=== PATIENT | female | born 1980 | race Caucasian/White ===

== ENCOUNTER → 2018-07-15 | Outpatient (CLI) | payer OTHER | END | disposition home or self-care (01) | LOC: LAB SHORT 13:58 → LAB 13:58 | DX: E11.9 Type 2 diabetes mellitus without complications (principal) | CPT/HCPCS: 83036 ==

== ENCOUNTER 2019-01-07 17:00 | Emergency (ER) | payer OTHER ==
[~2019-01-07] VITALS: Ht 165.1 cm; Wt 66.2 kg
[2019-01-07] MEDS ORDERED: BUPRENORPHINE HC2 MG SL (17:59)
[2019-01-07] MEDS ORDERED: BASAGLAR K100 UNIT/1 (18:00)
[2019-01-07] MEDS ORDERED: [UNRECOGNIZED DRUG - OTHER] (18:01)
[2019-01-07 18:22] LABS: BASOPHILS ABSOLUTE AUTO 0.05 K/mm3 (0.00-0.23); BASOPHILS PERCENT AUTO 0 % (0-2); EOSINOPHILS ABSOLUTE AUTO 0.06 K/mm3 (0.00-0.68); EOSINOPHILS PERCENT AUTO 0 % (0-6); Hematocrit 39.7 % (33.0-51.0); Hemoglobin 13.3 g/dL (11.5-16.0); IMMATURE GRAN ABSOLUTE AUTO 0.04 K/mm3 (0.00-0.10); IMMATURE GRAN PERCENT AUTO 0 % (0-1); LYMPHOCYTES ABSOLUTE AUTO 3.89 K/mm3 (0.84-5.20); LYMPHOCYTES PERCENT AUTO 27 % (21-46); MONOCYTES PERCENT AUTO 4 % (4-13); Mean Corpuscular HGB 30.5 pg (26.0-34.0); Mean Corpuscular HGB Conc 33.5 g/dL (31.5-36.5); Mean Corpuscular Volume 91 fL (80-100); Mean Platelet Volume 10.7 fL (9.1-12.4); NEUTROPHILS ABSOLUTE AUTO 9.68 K/mm3 (1.96-9.15); NEUTROPHILS PERCENT AUTO 68 % (41-73); Platelet Count 205 K/mm3 (150-400); RDW Coefficient Variation 12.1 % (11.7-14.2); RDW Standard Deviation 40.5 fL (35.1-46.3); Red Blood Cell Count 4.36 M/mm3 (3.80-5.20); White Blood Cell Count 14.22 K/mm3 (4.00-11.30)
[2019-01-07 18:40] LABS: Alanine Aminotransfer (ALT/SGP 21 U/L (12-78); Albumin, Blood 3.8 g/dL (3.4-5.0); Albumin/Globulin Ratio 1.1 (0.8-1.8); Alk Phos 101 U/L (50-136); Anion Gap 5 mmol/L (6-16); Aspartate Aminotrans (AST/SGOT 15 U/L (12-37); Bilirubin, Total 0.4 mg/dL (0.1-1.0); Blood Urea Nitrogen 9 mg/dL (8-24); Bun/Creatinine Ratio 16.3 (12.0-20.0); CO2, Blood 27 mmol/L (21-32); Calcium, Blood 8.7 mg/dL (8.5-10.1); Chloride, Blood 104 mmol/L (98-108); Creatinine, Blood 0.55 mg/dL (0.40-1.00); Globulin, Blood 3.6 g/dL (2.2-4.0); Glomerular Filtration Rate >60 (60-); Glucose, Blood 228 mg/dL (70-99); Potassium, Blood 3.4 mmol/L (3.5-5.5); Sodium, Blood 136 mmol/L (136-145); Total Protein, Blood 7.4 g/dL (6.4-8.2)
[2019-01-07 18:55] LABS: Source, Urine Clean Catch
[2019-01-07 19:07] LABS: Appearance, Urine Clear (Clear); Bilirubin, Urine Neg (Neg); Blood, Urine 1+ (Neg); Color, Urine Yellow (P-Yellow); Glucose Qualitative, Urine 4+ (Neg); Ketones, Urine Neg (Neg); Leukocyte Esterase, Urine Neg (Neg); Nitrite, Urine Neg (Neg); Protein, Urine Neg (Neg); Urobilinogen, Urine NORM (Normal)
[2019-01-07 19:15] LABS: Bacteria Few /hpf; Red Blood Cells, Urine 0-2 /hpf (0-2); Squamous Epithelial Cells Few /hpf (Few)
[2019-01-07] MEDS ORDERED: Augmentin 875-1 EACH PO (22:02)
== END 2019-01-07 22:24 | disposition home or self-care (01) ==
LOC: ER 17:00
PROVIDERS: Physician Assistant
DX: K63.89 Other specified diseases of intestine (principal); Z88.8 Allergy status to other drugs, medicaments and biological substances; Z88.5 Allergy status to narcotic agent; Z79.899 Other long term (current) drug therapy; Z79.4 Long term (current) use of insulin; E11.9 Type 2 diabetes mellitus without complications; F17.210 Nicotine dependence, cigarettes, uncomplicated
CPT/HCPCS: 36415; 74176; 80053; 81001; 83690; 85025; 96360; 99284-25; J7030

== ENCOUNTER 2019-02-03 11:58 | Day surgery (SDC) | payer OTHER ==
[~2019-02-03] VITALS: Ht 165.1 cm; Wt 68.1 kg
[~2019-02-03 11:58] MED LIST: Augmentin 875-1 EACH PO; BASAGLAR K100 UNIT/1; BUPRENORPHINE HC2 MG SL; [UNRECOGNIZED DRUG - OTHER]
== END 2019-02-03 14:45 | disposition home or self-care (01) ==
LOC: ORSCSDS 11:58
PROVIDERS: Internal Medicine Gastroenterology
PROC: 0DBM8ZX Excision of Descending Colon, Via Natural or Artificial Opening Endoscopic, Diagnostic (ICD-10-PCS; principal; 2019-02-03 13:15)
PROC: 0DBE8ZX Excision of Large Intestine, Via Natural or Artificial Opening Endoscopic, Diagnostic (ICD-10-PCS; principal; 2019-02-03 13:15)
DX: R10.32 Left lower quadrant pain (principal); K63.5 Polyp of colon; K64.8 Other hemorrhoids; E11.9 Type 2 diabetes mellitus without complications; F41.9 Anxiety disorder, unspecified; M79.7 Fibromyalgia; F17.210 Nicotine dependence, cigarettes, uncomplicated; Z79.4 Long term (current) use of insulin; Z79.899 Other long term (current) drug therapy
CPT/HCPCS: 82947; 88305; J2704; J7120

== ENCOUNTER → 2019-08-14 | Outpatient (CLI) | payer OTHER | END | disposition home or self-care (01) | LOC: LAB SHORT 16:00 → LAB 16:00 → EDSTATUS 08-14 10:20 → LAB FUT 08-14 10:20 | DX: R39.9 Unspecified symptoms and signs involving the genitourinary system (principal) | CPT/HCPCS: 87086 ==

== ENCOUNTER → 2019-08-15 | Outpatient (CLI) | payer OTHER | END | disposition home or self-care (01) | LOC: LAB SHORT 19:12 → LAB 19:12 → LAB FUT 08-14 16:15 → EDSTATUS 08-14 16:15 | DX: E11.9 Type 2 diabetes mellitus without complications (principal) | CPT/HCPCS: 83036 ==

== ENCOUNTER → 2020-03-16 | Outpatient (CLI) | payer OTHER ==
[2020-03-16 20:23] LABS: Microalb/Creat Ratio UR, Rand 19.135 mg/g (0.000-30.000); Microalbumin, Random Urine 35.4 mg/L (0.000-20.000)
== END | disposition home or self-care (01) ==
LOC: LAB SHORT 18:29 → LAB 18:29 → LAB FUT 03-16 16:30 → EDSTATUS 03-16 16:30
PROVIDERS: Physician Assistant
DX: E10.9 Type 1 diabetes mellitus without complications (principal)
CPT/HCPCS: 82043; 82570; 83036

== ENCOUNTER → 2022-04-18 | Outpatient (CLI) | payer OTHER ==
[2022-04-18 20:55] LABS: Cholesterol 94 mg/dL (50-200); HDL Cholesterol 46 mg/dL (>39); LDL/HDL RATIO 0.7; Low Density Lipoprotein Chol 32 mg/dL (0-110); Triglycerides 78 mg/dL (30-160); Very Low Density Lipoprot Chol 15 mg/dL (6-32)
== END | disposition home or self-care (01) ==
LOC: LAB SHORT 20:32 → LAB 20:32
PROVIDERS: Physician Assistant
DX: E10.9 Type 1 diabetes mellitus without complications (principal); E55.9 Vitamin D deficiency, unspecified
CPT/HCPCS: 80061; 82306

== ENCOUNTER → 2024-11-25 | Outpatient (CLI) | payer OTHER | END | disposition home or self-care (01) | LOC: LAB SHORT 08:39 → PLD 08:39 | DX: D48.5 Neoplasm of uncertain behavior of skin (principal) | CPT/HCPCS: 88305 ==

== ENCOUNTER 2025-07-22 09:36 | Day surgery (SDC) | payer OTHER ==
[2025-07-22] VITALS (7 sets, daily range): BP systolic 95–115; BP diastolic 55–77
== END 2025-07-22 23:00 | disposition home or self-care (01) ==
LOC: RAD 09:36 → CT 11:00 → RAD 23:00
DX: M47.27 Other spondylosis with radiculopathy, lumbosacral region (principal); M51.16 Intervertebral disc disorders with radiculopathy, lumbar region; K21.9 Gastro-esophageal reflux disease without esophagitis; E10.9 Type 1 diabetes mellitus without complications; Z87.891 Personal history of nicotine dependence; Z88.8 Allergy status to other drugs, medicaments and biological substances; Z91.018 Allergy to other foods; Z91.0110 Allergy to milk products, unspecified
CPT/HCPCS: 62304; 72132; Q9966